=== PATIENT | male | born 1940 | race Caucasian/White ===

== ENCOUNTER 2020-06-25 22:19 | Inpatient (IN) | payer MEDICARE ==
[~2020-06-25] VITALS: Ht 182.9 cm; Wt 93.9 kg
--- NOTE | ~2020-06-25 | EC ---
PATIENT:BOOKER VARGAS DATE OF SERVICE: 06/26/20 SEX: M MEDICAL RECORD: [id number] DATE OF : 42 LOCATION:D.M2 D.211 AGE OF PATIENT: 79 ADMISSION DATE: 06/26/20 REFERRING PHYSICIAN: INTERPRETING PHYSICIAN: AMERICA DILLON MD ECHOCARDIOGRAM REPORT ECHO CHARGES 4 ECHO COMPLETE Date: 06/26/20 CLINICAL DIAGNOSIS: ELEVATED TROP ECHOCARDIOGRAPHIC MEASUREMENTS (adult normal given) AC root (d.<3.7cm) 3.6 cm LV Septum d (<1.2 cm> 1.3 cm Valve Excursion 2.0 cm LV Septum (systole) 1.6 cm Left Atria (s.<4.0cm> 5.0 cm LVPW d(<1.2cm) 1.0 cm RV (d.<2.3cm) 3.1 cm LVPW (sytole) 1.4 cm LV diastole(<5.6CM) 5.0 cm MV E-F(>70mm/sec) cm LV systole 3.8 cm LVOT Diameter 2.0 cm MV exc.(>10mm) 1.3 cm Est.ejection fraction (50-75%) % DOPPLER: LVIT cm/sec A 52 cm/sec E 119 cm/sec LA cm/sec RVSP 31 mmHg LVOT 68 cm/sec AOP1/2T m/s Asc. Ao 107 cm/sec RVOT 46 cm/sec RA cm/sec PA 88 cm/sec AV Gradient Peak 4.6 mmHg AV Mean 2.4 mmHg AV Area 2.1 cm MV Gradient Peak 8.4 mmHg MV Mean 2.8 mmHg MV Area cm COMMENTS: Hospitalist Medical Director: Connie [facility] Glass Frame Fitter: 3 Dr. Jaeger TAPE# Pericardial Effusion N DATE OF SERVICE: Adequate 2D, color flow imaging, spectral Doppler, and M-Mode. No LVH. LV internal dimensions are normal. Wall motion normal. EF greater than or equal to 55%. Aortic valve is sclerotic. No evidence of stenosis by Doppler interrogation. Left atrium is dilated at 5 cm. Mitral valve shows no prolapse. Mild MR. Right-sided chambers are grossly normal. Mild TR. TRANSINT:[id number] Voice Confirmation ID: [id number] DOCUMENT ID: [id number] ECHOCARDIOGRAM REPORT [id number] BOOKER VARGAS AMERICA DILLON MD CC: [id number] DICTATION DATE: 06/26/20 1639 LITHODUPLICATOR OPERATOR: 06/26/20 210 ADM IN [facility] [address] [id number]
[~2020-06-25 22:19] MED LIST: AMBIEN10 MG PO; ANDROGEL5 GM; CENTRUM SILVER1 EAC3 PO; COENZYME Q10200 MG PO; CRESTOR5 MG PO; GLUCOPHAGE XR750 MG PO; GLUCOPHAGE500 MG PO; LANTUS INS100 UNITS/; LANTUS INS100 UNITS/ SC; NAPROXEN250 MG; PLAVIX75 MG PO; PROCARDIA XL60 MG PO; PROSCAR5 MG PO
[2020-06-25 23:14] LABS: BASOPHILS 0.1 % (0-2); EOSINOPHILS 0.6 % (0-7); HEMATOCRIT 33.9 % (42.0-54.0); HEMOGLOBIN 11.5 g/dL (13.5-17.5); IMMATURE GRANULOCYTES 0.3 % (0-5); LYMPHOCYTE ABS# 0.91 10x3/uL (1.32-3.57); LYMPHOCYTES 13.2 % (15-50); MCH 28.5 pg (26.0-34.0); MCHC 33.9 g/dL (31.0-37.0); MCV 84.1 fL (80.0-100.0); MEAN PLATELET VOLUME 9.2 fL (7.4-10.4); MONOCYTES 6.9 % (2-11); NEUTROPHIL ABS# 5.46 10x3/uL (1.78-5.38); NEUTROPHILS 78.9 % (40-80); PLATELET COUNT 291 10x3/uL (130-400); RBC 4.03 10x6/uL (4.20-6.10); RDW 15.5 % (11.5-14.5); WBC 6.9 10x3/uL (4.8-10.8)
[2020-06-25 23:29] LABS: ALBUMIN 3.3 g/dL (3.4-5.0); ALKALINE PHOSPHATASE 70 U/L (30-120); ALT (SGPT) 18 U/L (10-68); BILIRUBIN - TOTAL 0.74 mg/dL (0.2-1.3); CALCIUM 8.9 mg/dL (8.5-10.1); CARBON DIOXIDE 26.8 mmol/L (21.0-32.0); CHLORIDE - SERUM 95 mmol/L (98-107); HCG - QUANTITATIVE (MATERNAL) 0 mIU/mL; POTASSIUM - SERUM 3.4 mmol/L (3.5-5.1); PRO BNP 1876 pg/mL (0-450); SODIUM 132 mmol/L (136-145); THYROID STIMULATING HORMONE 1.84 uIU/mL (0.36-3.74); UREA NITROGEN 17 mg/dL (7-18); eGFR NON AFRICAN AMERICAN 77 mL/min (90-120)
[2020-06-25 23:45] LABS: CALC OSMOLALITY 263 mosm/kg (275-300)
[2020-06-25 23:47] LABS: GLUCOSE 37 mg/dL (74-106); TROPONIN-I 0.359 ng/mL (0.000-0.060)
--- NOTE | 2020-06-26 | NUR ---
PT FSBS 27, DR GARNER INFORMED, VERBAL ORDERS TO GIVE AN AMP OF D50 IV.
[2020-06-26 01:12] LABS: BILIRUBIN NEGATIVE (NEGATIVE); KETONE NEGATIVE (NEGATIVE); NITRITE NEGATIVE (NEGATIVE); UROBILINOGEN NORMAL mg/dL (< 2)
[2020-06-26 01:46] VITALS: BP 114/74
[2020-06-26 02:23] VITALS: BP 114/74; BMI 28.1
[2020-06-26] MEDS ORDERED: ELIQUIS5 MG PO (02:40)
[2020-06-26] MEDS ORDERED: DONEPEZIL HCL5 MG PO (02:40)
[2020-06-26] MEDS ORDERED: GLUCOSAMINE HC500 MG PO (02:43)
[2020-06-26] MEDS ORDERED: KRILL OIL 1,001 EAC1 PO (02:45)
[2020-06-26] MEDS ORDERED: COZAAR50 MG PO (02:47)
[2020-06-26] MEDS ORDERED: GLUCOPHAGE500 MG PO (02:48)
[2020-06-26] MEDS ORDERED: NOVOLOG100 UNIT/1 SC (02:49)
[2020-06-26] MEDS ORDERED: VIAGRA25 MG PO (02:50)
[2020-06-26] MEDS ORDERED: SOMA350 MG PO (02:51)
[2020-06-26 05:13] LABS: % SATURATION 19 % (15-55); IRON 54 ug/dl (35-150); TOTAL IRON BIND CAPACITY 272 ug/dl (260-445); UNSAT IRON BIND CAPACITY 218 ug/dl (150-375)
[2020-06-26 05:34] LABS: D-DIMER-QUANTITATIVE 0.59 ug/mLFEU (0.20-0.54); INR 1.32 (0.85-1.17); PROTIME 15.2 SECONDS (11.6-15.0)
[2020-06-26 05:40] VITALS: BP 126/69
[2020-06-26 06:05] LABS: TROPONIN-I 0.299 ng/mL (0.000-0.060)
--- NOTE | 2020-06-26 07:37 | NUR ---
PATIENT BLOOD SUGAR 69. NPO FOR CARDIOLOGY. WILL CALL CARDIOLOGY TO SEE IF PATIENT CAN EAT IF NOT HERE SOON. RESTING IN BED WITH EYES CLOSED. DENIES ANY NEEDS AT THIS TIME. WILL CONTINUE POC AND SAFETY PRECAUTIONS. BED ALARM ON.
[2020-06-26 07:54] VITALS: BP 104/80
--- NOTE | 2020-06-26 08:45 | NUR ---
GAVE ORANGE JUICE AND GRAHM CRACKERS FOR LOW BLOOD SUGAR. REFUSES CRACKERS AND WAS RELUCTANT TO DRINK JUICE. EDUCATED ON IMPORTANCE OF GETTING BLOOD SUGAR UP. NOT NPO ANYMORE WILL GET LUNCH TRAY.
[2020-06-26 11:32] VITALS: BP 138/80
[2020-06-26] MEDS ORDERED: LANTUS INS100 UNITS/ SC (13:50)
[2020-06-26 14:37] VITALS: Ht 182.9 cm; Wt 93.9 kg
--- NOTE | 2020-06-26 14:52 | NUR ---
URINE SPECIMEN COLLECTED AND TAKEN TO LAB. WILL MONITOR.
[2020-06-26 15:10] LABS: UDS - AMPHET NEGATIVE QUAL (NEGATIVE); UDS - BARB NEGATIVE QUAL (NEGATIVE); UDS - BENZO NEGATIVE QUAL (NEGATIVE); UDS - COCAINE NEGATIVE QUAL (NEGATIVE); UDS - OPIATE NEGATIVE QUAL (NEGATIVE); UDS - PCP NEGATIVE QUAL (NEGATIVE); UDS - THC NEGATIVE QUAL (NEGATIVE)
[2020-06-26 15:59] VITALS: BP 148/72
--- NOTE | 2020-06-26 19:23 | NUR ---
RECIEVED BEDSIDE SHIFT REPORT. AROUSES TO VERBAL STINULI. IV TO LT HAND WITH NS AT 75CC/HR. TELEMETRY IN PLACE. USES URINAL WHEN IN BED. ALSO, HAS EPISODES OF INCONTINENCE. DENIES ANY NEEDS AT THIS TIME.
--- NOTE | 2020-06-26 23:05 | NUR ---
SR. PAYROLL MANAGER CALLED WITH PULSE OF 35 TO 40'S. CHECKED ON PT AND HE WAS ASLEEP. WOKE HIM UP WITH VERBAL STIMULI. DENIES FEELING BAD OR ANYTHING. WILL NOTIFY .
--- NOTE | 2020-06-26 23:23 | NUR ---
GROUND CREWMAN NOTIFIED THIS NURSE OF BRADYCARDIA. PULSE DROPPING DOWN TO LOW 30'S. NOTIFIED DR. DILLON WITH NEW ORDER TO D/C [place]. WHEN THIS NURSE CHECKED ON PT HE WAS ALEEPING AND EASILY AROOUSE WITH VERBAL STIMULI. DENIES FEELING AN EFFECTS OF BRADYCARDIA.
[2020-06-27 01:08] VITALS: BP 93/51
[2020-06-27 05:33] VITALS: BP 126/79
[2020-06-27 05:45] LABS: BASOPHILS 0.6 % (0-2); EOSINOPHILS 2.5 % (0-7); HEMATOCRIT 31.4 % (42.0-54.0); HEMOGLOBIN 10.5 g/dL (13.5-17.5); IMMATURE GRANULOCYTES 0.2 % (0-5); LYMPHOCYTE ABS# 1.28 10x3/uL (1.32-3.57); LYMPHOCYTES 24.2 % (15-50); MCHC 33.4 g/dL (31.0-37.0); MCV 83.7 fL (80.0-100.0); MEAN PLATELET VOLUME 9.1 fL (7.4-10.4); MONOCYTES 12.8 % (2-11); NEUTROPHIL ABS# 3.17 10x3/uL (1.78-5.38); NEUTROPHILS 59.7 % (40-80); PLATELET COUNT 256 10x3/uL (130-400); RBC 3.75 10x6/uL (4.20-6.10); RDW 15.5 % (11.5-14.5); WBC 5.3 10x3/uL (4.8-10.8)
[2020-06-27 06:04] LABS: ALBUMIN 2.7 g/dL (3.4-5.0); ALKALINE PHOSPHATASE 60 U/L (30-120); BILIRUBIN - TOTAL 1.06 mg/dL (0.2-1.3); CALCIUM 8.3 mg/dL (8.5-10.1); CARBON DIOXIDE 25.1 mmol/L (21.0-32.0); CHLORIDE - SERUM 100 mmol/L (98-107); CREATININE - SERUM 0.8 mg/dL (0.6-1.3); MAGNESIUM - SERUM 1.1 mg/dL (1.8-2.4); POTASSIUM - SERUM 3.9 mmol/L (3.5-5.1); PROTEIN - SERUM 6.1 g/dL (6.4-8.2); SODIUM 133 mmol/L (136-145); UREA NITROGEN 14 mg/dL (7-18); eGFR NON AFRICAN AMERICAN > 90 mL/min (90-120)
[2020-06-27 06:14] LABS: ALT (SGPT) 12 U/L (10-68); CALC OSMOLALITY 264 mosm/kg (275-300); GLUCOSE 62 mg/dL (74-106)
--- NOTE | 2020-06-27 06:14 | NUR ---
FSBS 62 WILL GIVE SNACK. ASYMPTOMATIC.
[2020-06-27 08:18] VITALS: BP 144/87
--- NOTE | 2020-06-27 08:30 | NUR ---
PT RECEIVED AWAKE AND ALERT IN BED. PULLED UP FOR COMFORT AND BREAKFAST. SCD ON. NO COMPLAINTS AT PRESENT.
[2020-06-27] MEDS ORDERED: BETAPACE 80 MG80 MG PO (10:22)
[2020-06-27] MEDS ORDERED: LANTUS INS100 UNITS/ SC (10:23)
--- NOTE | 2020-06-27 11:33 | NUR ---
PT GOING TO GO BACK TO [facility] TODAY. FSBS 209. HE KNOWS ABOUT DISCHARGE.
--- NOTE | 2020-06-27 12:43 | NUR ---
CATHLEEN CALLED TO [facility].
--- NOTE | 2020-06-27 13:53 | NUR ---
REPORT CALLED TO THE [facility].
== END 2020-06-27 14:39 | DRG 637 ==
LOC: D.ER 22:19 → D.M2 06-26 00:04 → OBSVTIME 06-26 01:00 → D.M2 06-26 12:48
PROVIDERS: Family Medicine; ADMIT Family Medicine; ATTEND Family Medicine
DX: E11.649 Type 2 diabetes mellitus with hypoglycemia without coma (principal); I21.A1 Myocardial infarction type 2; G93.41 Metabolic encephalopathy; E87.1 Hypo-osmolality and hyponatremia; D64.9 Anemia, unspecified; E87.6 Hypokalemia; E83.42 Hypomagnesemia; E11.40 Type 2 diabetes mellitus with diabetic neuropathy, unspecified; I10 Essential (primary) hypertension; Z86.73 Personal history of transient ischemic attack (TIA), and cerebral infarction without residual deficits; I48.91 Unspecified atrial fibrillation

== ENCOUNTER 2020-07-02 14:06 | Observation (INO) | payer MEDICARE ==
[~2020-07-02] VITALS: Ht 182.9 cm; Wt 86.5 kg
--- NOTE | ~2020-07-02 | CN ---
PATIENT NAME:BOOKER VARGAS MEDICAL RECORD: [id number] : 42 LOCATION:[facility].2123 ADMIT DATE: 07/02/20 ACCOUNT: [id number] CONSULTING PHYSICIAN: AMERICA DILLON MD REFERRING PHYSICIAN: RYAN FLOWERS MD DATE OF CONSULTATION: 07/03/2020 HISTORY OF PRESENT ILLNESS: This is a 79-year-old gentleman with history of coronary artery disease, remote history of PTCA stenting, has a history of chronic atrial fibrillation, admitted recently with syncope and collapse, noted to be hypoglycemic at that time, had recurrent episode this admission with collapse again at the [facility] assisted living, found to have heart rates in the 30s on low dose beta justin Sotalol 40 b.i.d. No other AV jordan slowing agents. We are asked to see him concerning his cardiovascular status. PAST MEDICAL HISTORY: Includes; 1. Previous history of coronary artery disease. 2. Dementia. 3. Hypertension. 4. Hyperlipidemia. 5. Atrial fibrillation, chronic, on DOAC for CVA prophylaxis. ALLERGIES: None known. SOCIAL HISTORY: Currently lives in the [facility]. Does do some PT by his report, typically able to ambulate with minimal assistance. MEDICATIONS: Chronically include Soma 325 q.i.d. p.r.n., Aricept 5 mg p.o. at bedtime, Eliquis 5 b.i.d., Plavix 75 every day, losartan 50 every day, nifedipine 60 every day, Crestor 5 mg p.o. every day, sotalol 40 b.i.d., insulin per scale, metformin half gram b.i.d. REVIEW OF SYSTEMS: The patient reports easy bruising but reports no swollen glands. The patient reports no fever, no night sweats, no significant weight gain, no significant weight loss. No significant exercise tolerance. The patient reports no dry eyes, no irritation, no vision change. Patient reports no difficulty hearing and no ear pain. Patient reports no frequent nose bleeds or nose and sinus problems. Patient reports on arm pain on exertion. No shortness of breath while lying down. No history of heart murmur. Patient reports no cough, no wheezing or coughing up blood. Patient reports no abdominal pain, no vomiting. Normal appetite. No diarrhea and not vomiting blood. No nausea and no constipation. Patient reports no incontinence. No difficulty urinating. No hematuria. No increased frequency. Patient reports no muscle aches. No weakness, no arthralgias, no back pain. No swelling of the extremities. Patient reports no abnormal mole, no jaundice, no rashes. Reports no loss of consciousness. No weakness and no numbness. No seizures, dizziness, or headaches. The patient reports no depression, no sleep disturbance, feeling safe in a relationship and no alcohol abuse. Patient reports on fatigue. Reports no runny nose or sinus pressure. No itching, no hives, and no frequent sneezing. PHYSICAL EXAMINATION: GENERAL: Pleasant. No acute distress. VITAL SIGNS: Pulse 62, blood pressure 136/76. HEENT: Normocephalic, atraumatic. CONSULT REPORT [id number] BOOKER VARGAS NECK: No bruits noted. HEART: Irregular, bradycardic. A II/ systolic ejection murmur. LUNGS: Fairly good air excursion. ABDOMEN: Soft, nontender. EXTREMITIES: Pulses are palpable 1-2+. There is no edema. IMPRESSION AND PLAN: Shows atrial fibrillation with slow ventricular response. Suspect he has true sick sinus syndrome at this point, probably would benefit from simple single lead pacemaker; however, he is somewhat opposed to that at this point. We will discuss with him at a later point. Obviously, hold beta blockade at this point as well. TRANSINT:[id number] Voice Confirmation ID: [id number] DOCUMENT ID: [id number] AMERICA DILLON MD CC: [id number] DICTATION DATE: 07/03/20 1016 LASER TECHNICIAN: 07/03/20 1258 ADM IN [facility] [address] [place] [address]
[~2020-07-02 14:06] MED LIST changes: +BETAPACE 80 MG80 MG PO; +COZAAR50 MG PO; +DONEPEZIL HCL5 MG PO; +ELIQUIS5 MG PO; +GLUCOSAMINE HC500 MG PO; +KRILL OIL 1,001 EAC1 PO; +NOVOLOG100 UNIT/1 SC; +SOMA350 MG PO; +VIAGRA25 MG PO
[2020-07-02 15:02] LABS: BASOPHILS 0.3 % (0-2); EOSINOPHILS 2.6 % (0-7); HEMATOCRIT 32.6 % (42.0-54.0); HEMOGLOBIN 10.6 g/dL (13.5-17.5); IMMATURE GRANULOCYTES 0.3 % (0-5); LYMPHOCYTE ABS# 1.16 10x3/uL (1.32-3.57); LYMPHOCYTES 16.8 % (15-50); MCHC 32.5 g/dL (31.0-37.0); MEAN PLATELET VOLUME 8.4 fL (7.4-10.4); MONOCYTES 8.8 % (2-11); NEUTROPHIL ABS# 4.93 10x3/uL (1.78-5.38); NEUTROPHILS 71.2 % (40-80); PLATELET COUNT 247 10x3/uL (130-400); RBC 3.79 10x6/uL (4.20-6.10); RDW 15.3 % (11.5-14.5); WBC 6.9 10x3/uL (4.8-10.8)
[2020-07-02 15:05] VITALS: BP 121/69
[2020-07-02 15:14] LABS: CALC OSMOLALITY 263 mosm/kg (275-300); CALCIUM 8.6 mg/dL (8.5-10.1); CARBON DIOXIDE 26.5 mmol/L (21.0-32.0); CHLORIDE - SERUM 94 mmol/L (98-107); CREATININE - SERUM 1.1 mg/dL (0.6-1.3); POTASSIUM - SERUM 4.3 mmol/L (3.5-5.1); SODIUM 128 mmol/L (136-145); UREA NITROGEN 15 mg/dL (7-18); eGFR NON AFRICAN AMERICAN 69 mL/min (90-120)
[2020-07-02 15:15] LABS: GLUCOSE 208 mg/dL (74-106)
[2020-07-02 15:29] LABS: ALBUMIN 3.1 g/dL (3.4-5.0); ALKALINE PHOSPHATASE 69 U/L (30-120); ALT (SGPT) 17 U/L (10-68); BILIRUBIN - TOTAL 0.54 mg/dL (0.2-1.3); CREATINE KINASE 29 UL (21-232); MAGNESIUM - SERUM 1.3 mg/dL (1.8-2.4); PROTEIN - SERUM 6.6 g/dL (6.4-8.2); THYROID STIMULATING HORMONE 1.56 uIU/mL (0.36-3.74)
[2020-07-02 15:32] LABS: TROPONIN-I < 0.017 ng/mL (0.000-0.060)
[2020-07-02 15:58] LABS: BILIRUBIN NEGATIVE (NEGATIVE); KETONE NEGATIVE (NEGATIVE); NITRITE NEGATIVE (NEGATIVE); UROBILINOGEN NORMAL mg/dL (< 2)
[2020-07-02 17:23] VITALS: BP 144/73
--- NOTE | 2020-07-02 18:19 | NUR ---
rEPORT GIVEN TO LI CRENSHAW, SHE STATES ROOM IS NOT CLEANED AT THIS TIME, WILL CALL WHEN ROOM IS CLEANED.
[2020-07-02] MEDS ORDERED: SOMA350 MG PO (20:37)
[2020-07-03] VITALS: BP 136/76
--- NOTE | 2020-07-03 00:15 | NUR ---
RESTING WITH EYES CLOSED, RESPERATIONS EVEN, NO S/S DISTRESS NOTED.
--- NOTE | 2020-07-03 03:36 | NUR ---
PT UP OUT OF BED, IV TO LEFT FOREARM OUT, TIP INTACT. CHANGED PTS BRIEF AND LINENS, ASSISTED PT BACK TO BED. IV RESITED TO TOP OF LEFT ARM, 20 GUAGE, FIRST ATTEMPT. PT TOLERATED WELL. PLACED BACK ON TELEMERTY. BED LOW, BED ALARM ON, CL IN REACH. SCDS IN USE.
[2020-07-03 04:00] VITALS: BP 146/85
[2020-07-03 06:08] LABS: BASOPHILS 0.3 % (0-2); EOSINOPHILS 2.8 % (0-7); HEMATOCRIT 31.9 % (42.0-54.0); HEMOGLOBIN 10.5 g/dL (13.5-17.5); IMMATURE GRANULOCYTES 0.3 % (0-5); LYMPHOCYTE ABS# 1.02 10x3/uL (1.32-3.57); LYMPHOCYTES 15.2 % (15-50); MCH 27.9 pg (26.0-34.0); MCHC 32.9 g/dL (31.0-37.0); MCV 84.6 fL (80.0-100.0); MEAN PLATELET VOLUME 9.1 fL (7.4-10.4); MONOCYTES 8.5 % (2-11); NEUTROPHILS 72.9 % (40-80); PLATELET COUNT 267 10x3/uL (130-400); RBC 3.77 10x6/uL (4.20-6.10); RDW 15.2 % (11.5-14.5); WBC 6.7 10x3/uL (4.8-10.8)
[2020-07-03 06:39] LABS: CALC OSMOLALITY 271 mosm/kg (275-300); CARBON DIOXIDE 25.4 mmol/L (21.0-32.0); CHLORIDE - SERUM 100 mmol/L (98-107); GLUCOSE 204 mg/dL (74-106); MAGNESIUM - SERUM 1.4 mg/dL (1.8-2.4); PHOSPHOROUS 3.7 mg/dL (2.5-4.9); POTASSIUM - SERUM 3.7 mmol/L (3.5-5.1); SODIUM 133 mmol/L (136-145); UREA NITROGEN 13 mg/dL (7-18)
[2020-07-03 06:40] LABS: CREATININE - SERUM 0.8 mg/dL (0.6-1.3); eGFR NON AFRICAN AMERICAN > 90 mL/min (90-120)
[2020-07-03 07:54] VITALS: BP 116/76
--- NOTE | 2020-07-03 08:39 | NUR ---
AM MEDS GIVEN AT THIS TIME PER EMAR. PT AWAKE AND ALERT, RR EVEN NON LABORED ON ROOM AIR. PT ORIENTED, DNIES ANY PAIN OR NEEDS. EDUCATED PT REGARDING BEING NPO UNTIL CARDIOLOGY VISITS HIM. PT STATES UNDERSTANDING. NO NEEDS VOICED AT THIS TIME. CLWR.
[2020-07-03 10:41] LABS: APTT 32.2 SECONDS (22.8-39.4); INR 1.28 (0.85-1.17); PROTIME 14.8 SECONDS (11.6-15.0)
--- NOTE | 2020-07-03 11:31 | NUR ---
SPOKE WITH TAMIR AT [facility] REGARDING PT CARE PLAN.
[2020-07-03 11:45] VITALS: BP 143/89
--- NOTE | 2020-07-03 12:01 | NUR ---
PT SITTING UP IN CHAIR WITH FEET ELEVATED, AWKE AND ALERT. NO NEEDS VOICED. CLWR.
[2020-07-03 12:37] VITALS: Ht 182.9 cm; Wt 86.5 kg
--- NOTE | 2020-07-03 15:04 | NUR ---
SPOKE WITH DAUGHTER EMANUEL AT THIS TIME REGARDING PT CARE AND PLAN. CALLED [facility] REGARDING DAUGHTER'S QUESTIONS. WILL FOLLOW UP.
[2020-07-03 15:07] VITALS: BP 138/79
--- NOTE | 2020-07-03 16:04 | NUR ---
CALLED [facility] REGARDING PT BEING D/C BACK TODAY. PT DAUGHTER HAS ALSO CALLED FACILITY.
--- NOTE | 2020-07-03 16:10 | NUR ---
NOTIFIED PT REGARDING BEING D/C TODAY. PT STATES UNDERSTANDING.
--- NOTE | 2020-07-03 17:22 | NUR ---
D/C INSTRUCTIONS GIVEN TO PT AT THIS TIME. PT DENIES ANY QUESTIONS. PT WILL FOLLOW UP WITH AGITATOR OPERATOR TOMORROW. PT ASSISTED INTO CLOTHING, IV D/C WITH CATHETER INTACT, DRESSING INPLACE. NO DISTRESS NOTED. ALL BELONGINGS GATHERED.
--- NOTE | 2020-07-03 17:30 | NUR ---
PT WHEELED TO TRANSPORT VAN WITH [facility]. NO DISTRESS NOTED ON DEPARTURE. PT HAS ALL BELONGINGS INCLUDING CELL PHONE TIME OF D/C.
== END 2020-07-03 17:30 | disposition other institution (70) ==
LOC: D.ER 14:06 → D.M2 17:20 → OBSVTIME 17:20 → D.M2 07-03 17:30
PROVIDERS: Emergency Medicine; ADMIT Emergency Medicine; ATTEND Emergency Medicine
DX: R55 Syncope and collapse (principal); Z86.73 Personal history of transient ischemic attack (TIA), and cerebral infarction without residual deficits; E11.9 Type 2 diabetes mellitus without complications; I10 Essential (primary) hypertension; K21.9 Gastro-esophageal reflux disease without esophagitis; Z79.84 Long term (current) use of oral hypoglycemic drugs; F03.90 Unspecified dementia, unspecified severity, without behavioral disturbance, psychotic disturbance, mood disturbance, and anxiety; D64.9 Anemia, unspecified; E87.1 Hypo-osmolality and hyponatremia; E83.42 Hypomagnesemia; Z79.01 Long term (current) use of anticoagulants; E78.5 Hyperlipidemia, unspecified; F41.9 Anxiety disorder, unspecified; I48.91 Unspecified atrial fibrillation

== ENCOUNTER 2020-07-31 16:12 | Emergency (ER) | payer MEDICARE ==
[~2020-07-31] VITALS: Ht 182.9 cm; Wt 85.5 kg
[2020-07-31 16:14] VITALS: BP 95/59; Ht 182.9 cm; Wt 85.5 kg
[2020-07-31 17:11] LABS: BASOPHILS 0.3 % (0-2); EOSINOPHILS 1.5 % (0-7); HEMATOCRIT 35.1 % (42.0-54.0); HEMOGLOBIN 11.6 g/dL (13.5-17.5); IMMATURE GRANULOCYTES 0.1 % (0-5); LYMPHOCYTE ABS# 1.11 10x3/uL (1.32-3.57); LYMPHOCYTES 14.9 % (15-50); MCH 28.6 pg (26.0-34.0); MCV 86.5 fL (80.0-100.0); MEAN PLATELET VOLUME 9.4 fL (7.4-10.4); MONOCYTES 10.2 % (2-11); NEUTROPHIL ABS# 5.45 10x3/uL (1.78-5.38); PLATELET COUNT 227 10x3/uL (130-400); RBC 4.06 10x6/uL (4.20-6.10); RDW 14.9 % (11.5-14.5); WBC 7.5 10x3/uL (4.8-10.8)
[2020-07-31] MEDS ORDERED: MECLIZINE HCL25 MG PO (17:12)
[2020-07-31 17:19] LABS: INR 1.34 (0.85-1.17); PROTIME 15.4 SECONDS (11.6-15.0)
[2020-07-31 17:20] LABS: APTT 32.2 SECONDS (22.8-39.4); CALC OSMOLALITY 277 mosm/kg (275-300); CALCIUM 9.9 mg/dL (8.5-10.1); CARBON DIOXIDE 26.3 mmol/L (21.0-32.0); CHLORIDE - SERUM 96 mmol/L (98-107); CREATININE - SERUM 1.3 mg/dL (0.6-1.3); POTASSIUM - SERUM 4.8 mmol/L (3.5-5.1); SODIUM 131 mmol/L (136-145); UREA NITROGEN 23 mg/dL (7-18); eGFR NON AFRICAN AMERICAN 57 mL/min (90-120)
[2020-07-31 17:23] LABS: GLUCOSE 291 mg/dL (74-106)
[2020-07-31 17:36] LABS: ALBUMIN 3.5 g/dL (3.4-5.0); ALKALINE PHOSPHATASE 82 U/L (30-120); ALT (SGPT) 13 U/L (10-68); BILIRUBIN - TOTAL 1.18 mg/dL (0.2-1.3); CKMB 1.8 U/L (0.0-3.6); CREATINE KINASE 33 UL (21-232); MAGNESIUM - SERUM 1.6 mg/dL (1.8-2.4)
[2020-07-31 17:45] LABS: TROPONIN-I < 0.017 ng/mL (0.000-0.060)
== END 2020-08-01 05:02 | disposition home or self-care (01) ==
LOC: D.ER 16:12
PROVIDERS: Family Medicine
DX: M89.9 Disorder of bone, unspecified (principal); R42 Dizziness and giddiness; I95.9 Hypotension, unspecified; T46.7X5A Adverse effect of peripheral vasodilators, initial encounter; Z86.73 Personal history of transient ischemic attack (TIA), and cerebral infarction without residual deficits; E11.9 Type 2 diabetes mellitus without complications; Z79.4 Long term (current) use of insulin